=== PATIENT | male | born 1980 | race Caucasian/White ===

== ENCOUNTER 2016-10-19 21:26 | Emergency (ER) | payer OTHER ==
[~2016-10-19] VITALS: Ht 180.3 cm; Wt 79.2 kg
[~2016-10-19 21:26] MED LIST: ABILIFY PO; ABILIFY2 MG PO; ACID CONTROL150 MG PO; ADDERALL20 MG PO; ADDERALL30 MG PO; AUGMENTIN875 MG PO; FLEXERIL10 MG PO; LIDOCAINE20 MG/1 M5 PO; MOBIC15 MG PO; NAPROSYN500 MG PO; NORCO 7.5/321 TABLET PO; PEN-VEE K,VEET500 MG PO; PERCOCET 5/31 TABLET PO; PREDNISONE10 MG PO; PREDNISONE20 MG PO; PROAIR HFA8.5 GM; PROAIR HFA8.5 GM IH; PROTONIX40 MG PO; PROVENTIL HFA6.7 GM IH; RANITIDINE HCL300 MG; SINGULAIR10 MG PO; SPIRIVA1 INHALATI IH; STRATTERA40 MG PO; SYMBICORT60 INHALA1; SYMBICORT60 INHALA1 IH; ULTRAM50 MG PO; VALIUM2 MG PO; VENTOLIN HFA18 GM IH; ZITHROMAX Z-PA250 MG PO; ZOFRAN ODT4 MG PO
[2016-10-19 21:56] LABS: HEMATOCRIT 43.3 % (38.0-50.0); MCH 29.4 PG (29.0-34.0); MCHC 33.9 G/DL (30.0-36.0); MCV 86.6 FL (86-99); MEAN PLAT.VOLUME 9.7 uM^3 (9.0-12.4); PLATELET COUNT 336 K/uL (156-360); RBC DIS.WIDTH-CV 12.6 % (11.8-14.6); RBC DIS.WIDTH-SD 39.5 % (39-53); WHITE BLOOD COUNT 11.4 K/uL (4.1-10.2)
[2016-10-19 22:29] LABS: CHLORIDE 108 mEq/L (99-109); POTASSIUM 3.4 mEq/L (3.7-5.4); SODIUM 141 mEq/L (136-147)
[2016-10-19 22:31] LABS: GLUCOSE 100 mg/dL (70-99)
[2016-10-19 22:32] LABS: ANION GAP 11 MEQ/L (2-14)
[2016-10-19 22:35] LABS: GFR ESTIMATE (CALCULATED) > 59 mL/min/
[2016-10-19 22:36] LABS: UREA NITROGEN (BUN) 10 mg/dL (9-23)
[2016-10-20] MEDS ORDERED: MEDROL DOSEPAK4 MG PO (00:08)
[2016-10-20] MEDS ORDERED: SYMBICORT60 INHALA1 IH (00:08)
[2016-10-20 00:25] VITALS: BP 145/88
== END 2016-10-20 00:27 | disposition home or self-care (01) ==
LOC: EME 21:26
DX: J45.901 Unspecified asthma with (acute) exacerbation (principal); F32.9 Major depressive disorder, single episode, unspecified; F41.9 Anxiety disorder, unspecified; F90.9 Attention-deficit hyperactivity disorder, unspecified type; Z87.891 Personal history of nicotine dependence
CPT/HCPCS: 71020; 80048; 85027; 94640; 99281; 99284; J7512